=== PATIENT | male | born 1960 | race Caucasian/White ===

== ENCOUNTER 2021-12-30 11:13 | Outpatient (CLI) | payer BC, SELFPAY ==
[2021-12-30 16:08] LABS: Appearance Urine Clear (Clear); Bilirubin Urine Negative (Negative); Blood Urine Negative (Negative); Color Urine Yellow (Yellow); Glucose Urine UA Negative (Negative); Ketones Urine Negative (Negative); Leukocyte Esterase Ur Negative LEU/UL (Negative); Nitrate Urine Negative (Negative); Protein Urine Negative (Negative); Specific Grav Ur 1.025 (1.001-1.035); Urobilinogen Urine 0.2 mg/dL (<2.0)
[2021-12-30 16:09] LABS: Add Urine Microscopic? NO
[2021-12-30 18:34] LABS: Hematocrit 40.5 % (42.0-52.0); Hemoglobin 13.2 g/dL (14.0-18.0); Mean Corpuscular HGB Conc 32.6 g/dl (32-36); Mean Corpuscular Hemoglobin 32.4 pg (26-34); Mean Corpuscular Volume 99.5 fl (80-100); Mean Platelet Volume 10.1 fl (7.4-10.4); Platelet Count Result 309 k/mm3 (150-375); Red Blood Count 4.07 M/mm3 (4.6-6.20); Red Cell Distribution Width 13.3 % (11.5-14.5)
[2021-12-30 19:01] LABS: Erythrocyte Sedimentation Rate 7 mm/hr (0-20)
[2021-12-30 20:07] LABS: Rheumatoid Factor < 8.6 IU/ML (<12)
[2022-01-01 17:56] LABS: NIL 0.02 IU/mL; Quantiferon TB Plus, 1T NEGATIVE (NEGATIVE)
[2022-01-05 15:48] LABS: Anti Cyclic Citrullinated Pept <16 Units (<20)
== END 2021-12-30 11:14 | disposition home or self-care (01) ==
LOC: ANHGOSHLAB 11:14
PROVIDERS: PCP Internal Medicine; Visit Provider Internal Medicine
DX: L40.50 Arthropathic psoriasis, unspecified (principal); L40.9 Psoriasis, unspecified; M19.90 Unspecified osteoarthritis, unspecified site
CPT/HCPCS: 36415; 81003; 85027; 85652; 86038; 86200; 86430; 86480

== ENCOUNTER 2022-01-19 14:29 | Outpatient (CLI) | payer BC, SELFPAY ==
--- NOTE | ~2022-01-19 | XR_ITS ---
XR foot RT standing 2V DATE: 01/19/2022 15:17 INDICATION: Rheumatoid arthritis TECHNIQUE: Standing AP and lateral views COMPARISON: None FINDINGS: There is mild osteoarthritis at the first metatarsophalangeal joint. No erosive change is n oted. No fracture or dislocation, periosteal reaction or bone destruction. IMPRESSION: Mild osteoarthritis at first metatarsophalangeal joint Reviewed, dictated and finalized at location B.
--- NOTE | ~2022-01-19 | XR_ITS ---
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 No spondylolysis. The pars interarticularis appears intact bilaterally throughout the lumbar spine. T here is degenerative change at the apophyseal joints with associated slight grade 1 anterolisthesis a t L4-5. Mild degenerative disc disease at L1-2, L2-3, L3-4. Mild to moderate degenerative disc disease at L4- 5. L5-S1 interspace is well preserved. The sacroiliac joints appear normal. Abdominal aortic and iliac arterial calcifications. IMPRESSION: Mild to moderate degenerative disease Degenerative changes of apophyseal joints with associated minimal grade 1 anterolisthesis at L4-5 Reviewed, dictated and finalized at location B. IMPRESSION: Mild to moderate degenerative disease Degenerative changes of apophyseal joints with associated minimal grade 1 anter olisthesis at L4-5
--- NOTE | ~2022-01-19 | XR_ITS ---
XR foot LT standing 2V DATE: 01/19/2022 15:17 INDICATION: Rheumatoid arthritis TECHNIQUE: Standing AP and lateral views COMPARISON: None FINDINGS: There is slight plantar calcaneal enthesopathy without erosive change or periostitis. Mild osteoarthritis at the first metatarsophalangeal joint. No erosive change is noted. No fracture, dislocation, periosteal reaction or bone destruction. IMPRESSION: Slight plantar calcaneal enthesopathy Mild osteoarthritis at first metatarsophalangeal joint Reviewed, dictated and finalized at location B.
--- NOTE | ~2022-01-19 | XR_ITS ---
XR sacroiliac joints min 3V DATE: 01/19/2022 15:17 INDICATION: Spondylolisthesis TECHNIQUE: AP and bilateral oblique views of the sacroiliac joints COMPARISON: None FINDINGS: The sacroiliac joints appear normal. No fracture, dislocation, erosive change, ankylosis or significant degenerative change is noted. The abdominal aortic and bilateral iliac arterial calcific ations are noted. IMPRESSION: Negative sacroiliac joints Reviewed, dictated and finalized at Location A. Reviewed, dictated and finalized at location B. IMPRESSION: Negative sacroiliac joints
--- NOTE | ~2022-01-19 | XR_ITS ---
XR hand BI arthritis min 3V DATE: 01/19/2022 15:17 INDICATION: Rheumatoid arthritis, unspecified TECHNIQUE: 4 views of each hand COMPARISON: None FINDINGS: Right hand: Small chronic bony ossicle at the lateral base of the proximal phalanx of the fourth digi t, likely old small chip fracture. Degenerative change at the triscaphe joint. There is otherwise appear relatively well preserved. No recent fracture, dislocation, periosteal reaction or bone destruction or erosive change is noted. Left hand: There is narrowing at the triscaphe joint and moderate osteophytic change at the first car pometacarpal joint. There is mild osteoarthritis at the first and second metacarpophalangeal joints. No erosive change is noted. No fracture, dislocation, periosteal reaction or bone destruction. 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 IMPRESSION: No erosive changes noted at either hand Polyarticular osteoarthritis, greatest at the first carpometacarpal joint of th e left hand
== END 2022-01-19 14:30 | disposition home or self-care (01) ==
PROVIDERS: PCP Internal Medicine; Visit Provider Internal Medicine
DX: L40.50 Arthropathic psoriasis, unspecified (principal); M06.9 Rheumatoid arthritis, unspecified; M47.816 Spondylosis without myelopathy or radiculopathy, lumbar region; M19.041 Primary osteoarthritis, right hand; M19.042 Primary osteoarthritis, left hand; M51.36 Other intervertebral disc degeneration, lumbar region; M19.071 Primary osteoarthritis, right ankle and foot; M19.072 Primary osteoarthritis, left ankle and foot
CPT/HCPCS: 72110; 72202; 73130; 73620